=== PATIENT | male | born 1930 | race Caucasian/White ===

== ENCOUNTER 2017-05-30 07:52 | Observation (INO) | payer MEDICARE, BC ==
[~2017-05-30] VITALS: Ht 172.7 cm; Wt 81.0 kg
[~2017-05-30 07:52] MED LIST: ATORVASTATIN; CORDARONE200 MG/TAB PO; DIOVAN 160MG160 MG PO; DIOVAN320 MG PO; ELIQUIS 5MG PO; FISH OIL CONCEN1 SGL PO; HCTZ 25MG TAB25 MG PO; LIPITOR20 MG PO; MULTIPLE VITAMI1 CAP PO; PERCOCET 325 MG1 TA2 PO; PREDNISONE20 MG PO; PRINIVIL10 MG PO
[2017-05-30] MEDS ORDERED: ASPIRIN E.C. 8181 MG PO (08:29)
[2017-05-30] MEDS ORDERED: CORDARONE200 MG/TAB PO (08:36)
[2017-05-30 08:39] LABS: INR 1.2 (0.8-3.0); PROTHROMBIN TIME 13.6 SECONDS (9.7-12.8)
[2017-05-30 08:41] LABS: BASO % 0.5 % (0.0-2.0); EOS # 0.2 (0.0-0.7); EOS % 2.5 % (0-4.0); GRAN # 4.5 (1.4-6.5); GRAN % 59.2 % (42.2-75.2); HEMATOCRIT 42.1 % (42.0-52.0); HEMOGLOBIN 14.6 g/dl (13.5-18.0); MEAN CELL VOLUME 96 fl (80.0-100.0); MEAN CORPUSCULAR HEMOGLOBIN 33 pg (27.0-31.0); MEAN CORPUSCULAR HGB CONC 35 g/dl (33.0-37.0); MEAN PLATELET VOLUME 9.9 fl (7.4-10.4); MONO # 0.8 (0.1-0.6); MONO % 11.1 % (1.7-9.3); PLATELET COUNT 230 K/mm3 (130-400); RED BLOOD COUNT 4.37 M/mm3 (4.20-5.60); REDCELL DISTRIBUTION WIDTH-CV 11.5 % (11.5-14.5); WHITE BLOOD COUNT 7.6 K/mm3 (4.8-10.8)
[2017-05-30 08:42] LABS: PARTIAL THROMBOPLASTIN TIME 37.1 SECONDS (26.0-37.0)
[2017-05-30 09:20] LABS: ADJUSTED CALCIUM 9.1 mg/dL (8.4-10.2); ALANINE AMINOTRANSFERASE 26 U/L (21-72); ALKALINE PHOSPHATASE 57 U/L (50-136); ANION GAP 8 mmol/L (7-16); BILIRUBIN,TOTAL 0.8 mg/dL (0.0-1.0); BLOOD UREA NITROGEN 19 mg/dL (9-20); CALCIUM 9.1 mg/dL (8.4-10.2); CARBON DIOXIDE 26 mmol/L (22-30); CHLORIDE 99 mmol/L (98-107); CREATININE, serum 0.91 mg/dL (0.66-1.25); GLUCOSE 86 mg/dL (74-106); SODIUM 134 mmol/L (137-145); TOTAL PROTEIN 6.8 gm/dL (6.4-8.2)
[2017-05-30 09:31] LABS: TROPONIN-I < 0.012 ng/mL (0.000-0.034)
[2017-05-30 10:16] VITALS: BP 154/100; PULSE 58; TEMP 97.4
[2017-05-30 13:36] VITALS: BP 176/85; PULSE 62; TEMP 97.6
[2017-05-30 16:06] VITALS: BP 151/73; PULSE 67; TEMP 97.5
[2017-05-30 18:35] LABS: THYROXINE (T4)-TOTAL 8.8 ug/dL (5.5-11.0)
[2017-05-30 18:48] LABS: THYROID STIMULATING HORMONE 1.74 uIU/mL (0.465-4.680)
[2017-05-30 19:54] VITALS: BP 128/67; PULSE 82; TEMP 97.6
[2017-05-31 00:11] VITALS: BP 109/54; PULSE 73; TEMP 97.3
[2017-05-31 03:31] VITALS: BP 127/73; PULSE 67; TEMP 97.4
[2017-05-31 08:14] VITALS: BP 165/82; PULSE 59; TEMP 97.5
[2017-05-31 11:41] VITALS: BP 169/92; PULSE 63; TEMP 98
[2017-05-31] MEDS ORDERED: LIPITOR 40MG TA40 MG PO (13:51)
[2017-05-31] MEDS ORDERED: ASPIRIN E.C. 8181 MG PO (13:52)
== END 2017-05-31 16:56 | disposition home or self-care (01) ==
LOC: COL.ER 07:52 → MEDICAL 09:02
PROVIDERS: Emergency Medicine; Physician Assistant; Psychiatry & Neurology Neurology
DX: I63.9 Cerebral infarction, unspecified (principal); I48.91 Unspecified atrial fibrillation; I10 Essential (primary) hypertension; I08.1 Rheumatic disorders of both mitral and tricuspid valves; E78.5 Hyperlipidemia, unspecified; Z79.01 Long term (current) use of anticoagulants; Z85.46 Personal history of malignant neoplasm of prostate; Z90.79 Acquired absence of other genital organ(s); Z82.3 Family history of stroke
CPT/HCPCS: A9585; G0008; G0378; G8978-GP; G8979-GP; G8987-GO; G8988-GO; G8999-GN; G9186-GN; G9654; J2704; J7030

== ENCOUNTER 2017-06-21 12:30 | Outpatient (RCR) | payer MEDICARE, BC ==
[~2017-06-21 12:30] MED LIST changes: +ASPIRIN E.C. 8181 MG PO; +LIPITOR 40MG TA40 MG PO
== END 2017-09-05 | disposition home or self-care (01) ==
LOC: MKS.ESL.PT
DX: I69.322 Dysarthria following cerebral infarction (principal)
CPT/HCPCS: G8978-GP; G8979-GP; G8999-GN; G9158-GN; G9186-GN

== ENCOUNTER → 2017-12-19 | Outpatient (CLI) | payer MEDICARE, BC | LOC: COL.CARD 13:41 | DX: I48.0 Paroxysmal atrial fibrillation (principal); R00.1 Bradycardia, unspecified ==

== ENCOUNTER → 2018-06-21 | Outpatient (CLI) | payer MEDICARE, BC | LOC: COL.VAS 09:23 | DX: I65.23 Occlusion and stenosis of bilateral carotid arteries (principal) ==

== ENCOUNTER 2020-02-14 08:15 | Outpatient (RCR) | payer MEDICARE, BC | END 2020-04-23 | disposition home or self-care (01) | LOC: WSPT | DX: M47.816 Spondylosis without myelopathy or radiculopathy, lumbar region (principal) | CPT/HCPCS: G0283-GP ==

== ENCOUNTER 2020-05-11 10:34 | Outpatient (CLI) | payer MEDICARE, BC ==
[2006-01-27 06:05] VITALS: BP 127/81
[2020-05-11] VITALS (9 sets, daily range): BP systolic 136–191; BP diastolic 70–106; PULSE 54–86; TEMP 98.1
[~2020-05-11] VITALS: Ht 172.8 cm; Wt 86.0 kg
[2020-05-11] MEDS ORDERED: LIPITOR 40MG TA40 MG PO (11:58)
[2020-05-11] MEDS ORDERED: ASPIRIN E.C. 8181 MG PO (11:58)
[2020-05-11] MEDS ORDERED: DIOVAN/HCT 12.51 TAB PO (12:01)
[2020-05-11] MEDS ORDERED: CALCIUM ASCORB500 MG PO (12:02)
[2020-05-11] MEDS ORDERED: MICROZIDE12.5 MG PO (12:02)
[2020-05-11] MEDS ORDERED: PRILOSEC 20MG20 MG PO (12:03)
[2020-05-11] MEDS ORDERED: XALATAN EYE DROPS OU (12:03)
[2020-05-11] MEDS ORDERED: ULTRAM 50MG TAB50 MG PO (12:04)
[2020-05-11] MEDS ORDERED: ZOLOFT 50MG50 MG PO (12:04)
[2020-05-11] MEDS ORDERED: MICARDIS80 MG PO (12:06)
--- NOTE | 2020-05-11 13:00 | NUR ---
Report from anam WAGNER. 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 Denies pain and needs at this time. Bandaid to low middle back CD&I. VSS.
--- NOTE | 2020-05-11 15:00 | NUR ---
INT discontinued intact. Discharge instructions given after Dr. Dominguez talked with pt/. Ambulated to private car
== END 2020-05-11 15:00 | disposition home or self-care (01) ==
LOC: COL.CAR 10:34
DX: M48.54XA Collapsed vertebra, not elsewhere classified, thoracic region, initial encounter for fracture (principal); Z90.79 Acquired absence of other genital organ(s); Z79.82 Long term (current) use of aspirin; Z79.01 Long term (current) use of anticoagulants; K21.9 Gastro-esophageal reflux disease without esophagitis; E78.5 Hyperlipidemia, unspecified; Z85.46 Personal history of malignant neoplasm of prostate; I10 Essential (primary) hypertension; I48.91 Unspecified atrial fibrillation; I65.29 Occlusion and stenosis of unspecified carotid artery; Z85.828 Personal history of other malignant neoplasm of skin
CPT/HCPCS: C1713; J2250; J3010